=== PATIENT | female | born 1955 | race Caucasian/White ===

== ENCOUNTER 2016-11-29 07:54 | Day surgery (SDC) | payer MEDICAID ==
[~2016-11-29 07:54] MED LIST: Metoclopramide 10 MG/2 ML SDV IV PRN; Sodium Chloride 0.9% 1,000 ML IV SCH; Sodium Chloride 0.9% 10 ML Syringe FLUSH PRN
[2016-11-29] MEDS ORDERED: Propofol 200 MG/20 ML SDV ONE (10:55)
[2016-11-29 11:16] VITALS: BP 132/69
--- NOTE | 2016-11-30 16:34 | OR ---
DATE OF OPERATION: 11/29/2016 PREOPERATIVE DIAGNOSIS: Initial screening colonoscopy due. POSTOPERATIVE DIAGNOSIS: Poor prep. PROCEDURE: Incomplete colonoscopy. ANESTHESIA: General per Suman Matson CRNA. ESTIMATED BLOOD LOSS: 0 mL. DESCRIPTION OF PROCEDURE: After informed consent was obtained, the patient was taken to the endoscopy suite, and placed in the left lateral decubitus position with all pressure points, bony prominences, and neurovascular bundles padded appropriately and with no undue tension. The department of anesthesia initiated cardiopulmonary monitoring and performed sedation. A digital rectal examination was performed which was within normal limits. Then, a well lubricated Olympus colonoscope was inserted into the anus and advanced through the rectum and sigmoid colon. There was a large amount of stool burden, which could not be irrigated and suctioned clear. Due to the poor prep and poor visualization, the procedure was terminated. All air and the colonoscope were withdrawn, and the patient was returned to the recovery room in stable condition. AZRA/SANTIAGO /[id number]
== END 2016-11-29 12:01 | disposition home or self-care (01) ==
LOC: LB.SDS 07:54
PROVIDERS: ATTEND Surgery
DX: Z12.11 Encounter for screening for malignant neoplasm of colon (principal); F17.200 Nicotine dependence, unspecified, uncomplicated
CPT/HCPCS: 45378; J2704; J7040

== ENCOUNTER 2019-02-14 09:49 | Day surgery (SDC) | payer MEDICAID, MEDICARE ==
[~2019-02-14 09:49] MED LIST changes: -Sodium Chloride 0.9% 10 ML Syringe FLUSH PRN
[2019-02-14] MEDS ORDERED: Propofol 1,000 MG/100 ML SDV ONE (12:25)
--- NOTE | 2019-02-14 13:11 | OR ---
DATE OF OPERATION: 02/14/2019 PREOPERATIVE DIAGNOSIS: Family history of colon cancer, screening colonoscopy. POSTOPERATIVE DIAGNOSIS: Family history of colon cancer, screening colonoscopy PROCEDURE: Colonoscopy. ANESTHESIA: MAC. ESTIMATED BLOOD LOSS: None. COMPLICATIONS: None. INDICATION FOR THE PROCEDURE: The patient is a 63-year-old female who had a mother who was diagnosed with colon cancer in her 70s. She has not had any colonoscopies previously. She otherwise denies any change in bowel habits. She is here today for her first colonoscopy. DESCRIPTION OF PROCEDURE: Informed consent was obtained with the patient. The patient was taken to the operating room and placed on the table in left lateral decubitus position. Monitored anesthesia care was administered. Digital rectal exam was performed and was normal. Colonoscope was then advanced through the anus and directed toward the cecum. Cecum was reached and identified by appendiceal orifice as well as ileocecal valve. Colonoscope was then slowly withdrawn. No masses. No polyps. No areas of ischemia or inflammation identified. Retroflexion performed in the rectum was also otherwise unremarkable. Colonoscope was then withdrawn. FINDINGS: Normal colonoscopy. RECOMMENDATIONS: Due to family history, would recommend repeat screening colonoscopy in 5 years. SINTIA/SANTIAGO /[id number]
== END 2019-02-14 13:45 | disposition home or self-care (01) ==
LOC: LB.SDS 09:49
PROVIDERS: ATTEND Surgery
DX: Z12.11 Encounter for screening for malignant neoplasm of colon (principal); Z80.0 Family history of malignant neoplasm of digestive organs
CPT/HCPCS: G0105; J2704; J7030; G0121